=== PATIENT | male | born 1950 | race Caucasian/White ===

== ENCOUNTER 2016-08-10 18:14 | Emergency (ER) | payer OTHER ==
[~2016-08-10] VITALS: Ht 167.6 cm; Wt 68.7 kg
[~2016-08-10 18:14] MED LIST: NAPROXEN500 MG PO
[2016-08-10 19:51] LABS: ADD MIUA? NO; BILIRUBIN NEGATIVE; BLOOD NEGATIVE; COLOR YELLOW ((YELLOW)); GLUCOSE (STRIP) NEGATIVE; KETONES NEGATIVE; LEUKOCYTES NEGATIVE; NITRITE NEGATIVE; PROTEIN (STRIP) NEGATIVE; UROBILINOGEN 0.2 MG/DL (0.2-1.0)
[2016-08-10] MEDS ORDERED: MOTRIN600 MG PO (22:24)
[2016-08-10] MEDS ORDERED: ULTRACET1 TABLET PO (22:27)
[2016-08-10 22:50] VITALS: BP 174/80
== END 2016-08-10 22:53 | disposition home or self-care (01) ==
LOC: EME 18:14
PROVIDERS: Physician Assistant
DX: M51.17 Intervertebral disc disorders with radiculopathy, lumbosacral region (principal); R33.9 Retention of urine, unspecified; F17.200 Nicotine dependence, unspecified, uncomplicated
CPT/HCPCS: 72148; 72170; 81003; 99281; 99285